=== PATIENT | male | born 1995 | race Caucasian/White ===

== ENCOUNTER 2019-06-03 16:18 | Emergency (ER) | payer BC, OTHER ==
[2019-06-03] MEDS ORDERED: NA CHLORIDE 0.9% 1,000 ML ONE (17:02)
--- NOTE | 2019-06-03 17:21 | RAD REPORT ---
EXAM DESCRIPTION: CT - Head Brain Wo Cont - 06/03/2019 5:14 pm CLINICAL HISTORY: Syncope, dizziness, headache, history of Chiari malformation COMPARISON: None. TECHNIQUE: Axial 5 mm thick images of the head were obtained without IV contrast. All CT scans are performed using dose optimization technique as appropriate and may include automated exposure control or mA/KV adjustment according to patient size. FINDINGS: No intracranial hemorrhage, mass, edema or shift of mid-line structures. No acute infarcti on changes seen. No abnormal extra-axial fluid collections. Ventricles are minimally asymmetric in sh ape as a normal variant. Mastoid air cells and visualized portions of the paranasal sinuses are clear. No acute bone findings. Patient has low lying tonsils with suboccipital craniectomy change. IMPRESSION: Negative non-contrast CT head examination for acute finding.
[2019-06-03 17:33] LABS: Absolute Lymphocytes (CBC) 2.4 K/uL (0.7-4.9); Basophils % 0.6 % (0-1.3); Lymphocytes % 27.4 % (15.3-44.8); MPV 8.4 fL (7.6-11.3); RBC Red Blood Cell Count 5.03 M/uL (4.33-5.43)
--- NOTE | 2019-06-03 17:49 | RAD REPORT ---
EXAM DESCRIPTION: RAD - Chest Single View - 06/03/2019 5:02 pm CLINICAL HISTORY: Syncope COMPARISON: None. TECHNIQUE: AP portable chest image was obtained 1656 hours . FINDINGS: Lungs are clear. Heart and vasculature are normal. No measurable pleural effusion and no p neumothorax. No acute bony abnormality seen. No acute aortic findings suspected. IMPRESSION: No acute cardiopulmonary process.
[2019-06-03 17:50] LABS: BUN Blood Urea Nitrogen 15 mg/dL (7-18); Bicarbonate 28 mmol/L (21-32); Glucose Level 96 mg/dL (74-106); Potassium 4.1 mmol/L (3.5-5.1); Sodium Level 141 mmol/L (136-145); Troponin (Emerg Dept Use Only) < 0.02 ng/mL (0.0-0.045)
--- NOTE | 2019-06-03 18:13 | ER ---
Nurse's Notes [facility] Name: Tiffany Carrizales Age: 23 yrs Sex: Male : 1995 Arrival Date: 06/03/2019 Time: 16:21 Bed 13 Private MD: Diagnosis: Syncope and collapse Presentation: 06/03 16:34 Presenting complaint: Patient states: Syncopal episode after having dizziness and ph nausea this morning, also reports headache, hx of sx for Chiari malformation. Transition of care: patient was not received from another setting of care. Onset of symptoms was June 03, 2019. Risk Assessment: Do you want to hurt yourself or someone else? Patient reports no desire to harm self or others. Initial Sepsis Screen: Does the patient meet any 2 criteria? No. Patient's initial sepsis screen is negative. Does the patient have a suspected source of infection? No. Patient's initial sepsis screen is negative. Care prior to arrival: None. 16:34 Method Of Arrival: Ambulatory ph 16:34 Acuity: BRUNILDA 3 ph Historical: - Allergies: 16:36 No Known Allergies; ph - Home Meds: 16:36 Zyrtec Oral [Active]; ph - PMHx: 16:36 Chiari Malformation; ph - PSHx: 16:36 brain; ph - Immunization history:: Adult Immunizations up to date. - Social history:: Smoking status: Patient uses tobacco products, Vape. - Ebola Screening: : Patient negative for fever greater than or equal to 101.5 degrees Fahrenheit, and additional compatible Ebola Virus Disease symptoms Patient denies exposure to infectious person Patient denies travel to an Ebola-affected area in the 21 days before illness onset No symptoms or risks identified at this time. Screenin:42 Abuse screen: Denies threats or abuse. Denies injuries from another. Nutritional ca1 screening: No deficits noted. Tuberculosis screening: No symptoms or risk factors identified. Fall Risk Fall in past 12 months (25 points). Assessment: 16:42 General: Appears in no apparent distress. comfortable, Behavior is calm, cooperative, ca1 appropriate for age. Pain: Complains of pain in left occipital area and left side of the back of head Pain currently is 4 out of 10 on a pain scale. Pain began after the fall this morning. Neuro: Level of Consciousness is awake, alert, obeys commands, Oriented to person, place, time, situation, Appropriate for age Senior Technical Support Analyst are equal bilaterally Moves all extremities. Gait is steady, Speech is normal, Facial symmetry appears normal, Pupils are PERRLA, Intact. Cardiovascular: Heart tones S1 S2 present Capillary refill < 3 seconds Patient's skin is warm and dry. Rhythm is sinus bradycardia. Respiratory: Airway is patent Respiratory effort is even, unlabored, Respiratory pattern is regular, symmetrical, Breath sounds are clear bilaterally. GI: Abdomen is flat, non-distended, Bowel sounds present X 4 quads. Abd is soft and non tender X 4 quads. : No deficits noted. No signs and/or symptoms were reported regarding the genitourinary system. EENT: No deficits noted. No signs and/or symptoms were reported regarding the EENT system. Derm: Skin is intact, is healthy with good turgor, Skin is pink, warm \T\ dry. Musculoskeletal: Circulation, motion, and sensation intact. Capillary refill < 3 seconds, Range of motion: intact in all extremities. 17:43 Reassessment: Patient appears in no apparent distress at this time. No changes from ca1 previously documented assessment. Patient and/or family updated on plan of care and expected duration. Pain level reassessed. Patient is alert, oriented x 3, equal unlabored respirations, skin warm/dry/pink. Vital Signs: 16:37 BP 148 / 98; Pulse 53; Resp 18; Temp 98.6; Pulse Ox 100% on R/A; Weight 78.93 kg; ph Height 5 ft. 7 in. (170.18 cm); Pain 4/10; 17:43 BP 132 / 87; Pulse 73; Resp 16 S; Pulse Ox 100% on R/A; ca1 18:17 BP 135 / 86; Pulse 53; Resp 17 S; Pulse Ox 100% on R/A; ca1 16:37 Body Mass Index 27.25 (78.93 kg, 170.18 cm) ph [place] Coma Score: 18:11 Eye Response: spontaneous(4). Verbal Response: oriented(5). Motor Response: obeys la1 commands(6). Total: 15. ED Course: 16:21 Patient arrived in ED. as 16:36 Triage completed. ph 16:40 Foster Strauss FNP-C [facility]. la1 16:40 Juice Reyna MD is Attending Physician. la1 16:40 Arm band placed on. ca1 16:42 Patient has correct armband on for positive identification. Bed in low position. Call ca1 light in reach. Side rails up X 1. Pulse ox on. NIBP on. Warm blanket given. 17:04 Chest Single View XRAY In Process Unspecified. EDMS 17:12 Lolita Sampson, RN is Primary Nurse. ca1 17:14 CT Head Brain wo Cont In Process Unspecified. EDMS 17:22 No provider procedures requiring assistance completed. Initial lab(s) drawn, by me, ca1 sent to lab. Inserted saline lock: 22 gauge in right antecubital area, using aseptic technique. Blood collected. 18:22 IV discontinued, intact, bleeding controlled, No redness/swelling at site. Pressure ca1 dressing applied. Administered Medications: 17:22 Drug: NS 0.9% 1000 ml Route: IV; Rate: 1000 ml; Site: right antecubital; ca1 18:18 Follow up: Response: No adverse reaction; IV Status: Completed infusion ca1 Outcome: 18:13 Discharge ordered by . la1 18:22 Discharged to home ambulatory. ca1 18:22 Condition: stable 18:22 Discharge instructions given to patient, Instructed on discharge instructions, follow up and referral plans. Demonstrated understanding of instructions, follow-up care. 18:23 Patient left the ED. ca1 Signatures: Dispatcher [employer] Tamiko Rodriguez Lee, ALL ROUND LOGGER-C ALL ROUND LOGGER-Cla1 Adriana Levin RN RN Lolita Sampson, DERRICK RN ca1
--- NOTE | 2019-06-03 18:13 | EDPHYS ---
Physician Documentation [facility] Name: Tiffany Carrizales Age: 23 yrs Sex: Male : 1995 Arrival Date: 06/03/2019 Time: 16:21 Bed 13 Private MD: ED Physician Juice Reyna HPI: 06/03 17:05 This 23 yrs old Male presents to ER via Ambulatory with complaints of la1 Headache and syncope. 17:05 The patient complains of pain to the left side of the back of head and left occipital la1 area. The patient describes the headache as constant. Onset: The symptoms/episode began/occurred this morning. Associated signs and symptoms: Pertinent positives: syncope. Severity of symptoms: At its worst the pain was moderate. Headache History: Denies prior headaches. pt reports he was at work and began to feel a little dizzy followed by a syncopal episode witnessed by coworkers, coworkers told him it looked like he was shaking, no known seizure history. Historical: - Allergies: 16:36 No Known Allergies; ph - Home Meds: 16:36 Zyrtec Oral [Active]; ph - PMHx: 16:36 Chiari Malformation; ph - PSHx: 16:36 brain; ph - Immunization history:: Adult Immunizations up to date. - Social history:: Smoking status: Patient uses tobacco products, Vape. - Ebola Screening: : Patient negative for fever greater than or equal to 101.5 degrees Fahrenheit, and additional compatible Ebola Virus Disease symptoms Patient denies exposure to infectious person Patient denies travel to an Ebola-affected area in the 21 days before illness onset No symptoms or risks identified at this time. ROS: 17:06 Constitutional: Negative for fever, chills, and weight loss, Eyes: Negative for injury, la1 pain, redness, and discharge, ENT: Negative for injury, pain, and discharge, Neck: Negative for injury, pain, and swelling, Cardiovascular: Negative for chest pain, palpitations, and edema, Respiratory: Negative for shortness of breath, cough, wheezing, and pleuritic chest pain, Abdomen/GI: Negative for abdominal pain, nausea, vomiting, diarrhea, and constipation, Back: Negative for injury and pain, MS/Extremity: Negative for injury and deformity. 17:06 Neuro: Positive for headache. Exam: 17:07 Constitutional: This is a well developed, well nourished patient who is awake, alert, la1 and in no acute distress. Head/Face: Normocephalic, atraumatic. Eyes: Pupils equal round and reactive to light, extra-ocular motions intact. Periorbital areas with no swelling, redness, or edema. ENT: . Mucous membranes moist. Neck: . No Meningismus. 17:07 Chest/axilla: Normal chest wall appearance and motion. Nontender with no deformity. No lesions are appreciated. Cardiovascular: Regular rate and rhythm with a normal S1 and S2. No gallops, murmurs, or rubs. Normal PMI, no JVD. No pulse deficits. Respiratory: Lungs have equal breath sounds bilaterally, clear to auscultation No rales, rhonchi or wheezes noted. No increased work of breathing, no retractions or nasal flaring. Abdomen/GI: Soft, non-tender, with normal bowel sounds. No distension or tympany. No guarding or rebound. No evidence of tenderness throughout. Back: No spinal tenderness. No costovertebral tenderness. Full range of motion. MS/ Extremity: Pulses equal, no cyanosis. Neurovascular intact. Full, normal range of motion. Neuro: Awake and alert, GCS 15, oriented to person, place, time, and situation. Cranial nerves II-XII grossly intact. Motor strength 5/5 in all extremities. Sensory grossly intact. Cerebellar exam normal. Normal gait. Vital Signs: 16:37 BP 148 / 98; Pulse 53; Resp 18; Temp 98.6; Pulse Ox 100% on R/A; Weight 78.93 kg; ph Height 5 ft. 7 in. (170.18 cm); Pain 4/10; 17:43 BP 132 / 87; Pulse 73; Resp 16 S; Pulse Ox 100% on R/A; ca1 18:17 BP 135 / 86; Pulse 53; Resp 17 S; Pulse Ox 100% on R/A; ca1 16:37 Body Mass Index 27.25 (78.93 kg, 170.18 cm) ph [place] Coma Score: 18:11 Eye Response: spontaneous(4). Verbal Response: oriented(5). Motor Response: obeys la1 commands(6). Total: 15. MDM: 16:40 Patient medically screened. la1 17:09 Data reviewed: EKG. Test interpretation: by ED physician or midlevel provider: ECG. la 18:11 Data interpreted: Pulse oximetry: on room air is 100 %. Interpretation: normal. la1 Counseling: I had a detailed discussion with the patient and/or guardian regarding: the historical points, exam findings, and any diagnostic results supporting the discharge/admit diagnosis, lab results, the need for outpatient follow up, a in school suspension aide, a neurosurgeon. Special discussion: Based on the history and exam findings, there is no indication for further emergent testing or inpatient evaluation. I discussed with the patient/guardian the need to see the in school suspension aide for further evaluation of the symptoms. I discussed with the patient/guardian the need to see the neurologist for further evaluation of the symptoms. ED course: pt feels he is at baseline, normal CT head/CXR, only bradycardia and PAC noted on otherwise normal ECG. Will have pt FU with neurology and cards. 06/03 16:48 Order name: Basic Metabolic Panel; Complete Time: 17:59 06/03 16:48 Order name: CBC with Diff; Complete Time: 17:59 06/03 16:48 Order name: CT Head Brain wo Cont; Complete Time: 17:30 06/03 16:48 Order name: Troponin (emerg Dept Use Only); Complete Time: 17:59 06/03 16:48 Order name: Chest Single View XRAY; Complete Time: 17:59 06/03 16:48 Order name: EKG; Complete Time: 16:49 06/03 16:48 Order name: Cardiac monitoring; Complete Time: 17:14 06/03 16:48 Order name: EKG - Nurse/Tech; Complete Time: 17:14 06/03 16:48 Order name: IV Saline Lock; Complete Time: 17:25 06/03 16:48 Order name: Labs collected and sent; Complete Time: 17:29 la Administered Medications: 17:22 Drug: NS 0.9% 1000 ml Route: IV; Rate: 1000 ml; Site: right antecubital; ca1 18:18 Follow up: Response: No adverse reaction; IV Status: Completed infusion ca1 Disposition: 18:33 Co-signature as Attending Physician, Juice Reyna MD. rn Disposition: 06/03/19 18:13 Discharged to Home. Impression: Syncope and collapse. - Condition is Fair. - Discharge Instructions: Near-Syncope, Syncope. - Work release form, Medication Reconciliation Form, Thank You Letter form. - Follow up: Private Physician; When: 2 - 3 days; Reason: Recheck today's complaints, Re-evaluation by your physician. - Problem is new. - Symptoms have improved. Signatures: Dispatcher [employer] EDMS Juice Reyna MD MD rn Carlos A, Foster, DATA SCIENCES DIRECTOR-C DATA SCIENCES DIRECTOR-Cla1 Adriana Levin, RN RN ph AcLolita blount RN RN ca1 Corrections: (The following items were deleted from the chart) 18:23 18:13 06/03/2019 18:13 Discharged to Home. Impression: Syncope and collapse. Condition ca1 is Fair. Forms are Medication Reconciliation Form, Thank You Letter, Antibiotic Education, Prescription Opioid Use. Follow up: Private Physician; When: 2 - 3 days; Reason: Recheck today's complaints, Re-evaluation by your physician. Problem is new. Symptoms have improved. la1
[2019-06-03 18:30] VITALS: TEMP 98.6; O2SAT 100
[2019-06-03 18:49] VITALS: BP 135/86
--- NOTE | 2019-06-04 08:09 | EKG ---
Test Date: 2019-06-03 Test Time: 16:51:44 Street Light Inspector: TAHIR MEASUREMENT RESULTS: Intervals: Rate: 48 VT: 156 QRSD: 104 QT: 420 QTc: 375 [place]: P: 70 VT: 156 QRS: 64 T: 54 INTERPRETIVE STATEMENTS: Sinus bradycardia with premature atrial complexes Otherwise normal ECG No previous ECG available for comparison Electronically Signed On 06-04-19 08:07:30 AUTOMOTIVE ELECTRICIAN by Paolo Dang
== END 2019-06-03 18:23 | disposition home or self-care (01) ==
LOC: ER 16:18
DX: R55 Syncope and collapse (principal); Z72.0 Tobacco use
CPT/HCPCS: 36415; 70450; 71045; 80048; 84484; 85025; 93005; 96360; 99284; J7030